=== PATIENT | male | born 1980 | race Two or more races ===

== ENCOUNTER 2019-12-06 00:32 | Emergency (ER) | payer MEDICAID ==
[~2019-12-06] VITALS: Ht 188 cm; Wt 88.5 kg
[~2019-12-06 00:32] MED LIST: PAR20T
[2019-12-06 00:53] VITALS: BP 137/90
== END 2019-12-06 02:53 | disposition home or self-care (01) ==
LOC: ER 00:34
DX: S32.019A Unspecified fracture of first lumbar vertebra, initial encounter for closed fracture (principal); E11.9 Type 2 diabetes mellitus without complications; M51.27 Other intervertebral disc displacement, lumbosacral region; R42 Dizziness and giddiness; V43.52XA Car driver injured in collision with other type car in traffic accident, initial encounter; Y93.89 Activity, other specified; Y92.488 Other paved roadways as the place of occurrence of the external cause; Y99.8 Other external cause status
CPT/HCPCS: 70450; 72131; 73120

== ENCOUNTER 2020-04-20 04:34 | Emergency (ER) | payer MEDICAID ==
[2020-04-20 09:00] VITALS: BP 132/88
== END 2020-04-20 09:03 | disposition home or self-care (01) ==
LOC: ER 04:34
DX: E11.9 Type 2 diabetes mellitus without complications (principal); F41.9 Anxiety disorder, unspecified; F32.9 Major depressive disorder, single episode, unspecified; F17.210 Nicotine dependence, cigarettes, uncomplicated; Z20.828 Contact with and (suspected) exposure to other viral communicable diseases
CPT/HCPCS: 36415; 87426; 87804; 99283; J7030